=== PATIENT | female | born 1990 | race Caucasian/White ===

== ENCOUNTER 2017-08-12 22:41 | Inpatient (IN) | payer BC ==
[2017-08-13] MEDS ORDERED: Promethazine 25 MG/ML SDV IM ONE (01:20)
[2017-08-13] MEDS ORDERED: Butorphanol 1 MG/ML SDV IM ONE (01:20)
[2017-08-13] MEDS ORDERED: Water For Irrigation,Sterile 1,000 ML Container IRR PRN (03:34)
[2017-08-13] MEDS ORDERED: Sodium Chloride 0.9% 2.5 ML Syringe FLUSH PRN (03:34)
[2017-08-13] MEDS ORDERED: Misoprostol 200 MCG Tab PO PRN (03:34)
[2017-08-13] MEDS ORDERED: Butorphanol 1 MG/ML SDV IVPUSH PRN (03:34)
[2017-08-13] MEDS ORDERED: Lidocaine 1% 50 ML MDV INJECT PRN (03:34)
[2017-08-13] MEDS ORDERED: Carboprost Tromethamine 250 MCG/1 ML Amp IM PRN (03:34)
[2017-08-13] MEDS ORDERED: Methylergonovine 0.2 MG/1 ML Amp IM PRN (03:34)
[2017-08-13] MEDS ORDERED: Sodium Chloride 0.9% 10 ML Syringe FLUSH PRN (03:34)
[2017-08-13] MEDS ORDERED: Nalbuphine 10 MG/1 ML Vial IVPUSH PRN (03:34)
[2017-08-13] MEDS ORDERED: Oxytocin/0.9 % Sodium Chloride 30 UNIT/500 ML BAG IV SCH ×2 (03:45→07:26)
[2017-08-13] MEDS: Lactated Ringers 1,000 ML IV SCH ×3 (04:22→09:52)
[2017-08-13] MEDS ORDERED: fentaNYL 100 MCG/2 ML SDV ONE ×2 (04:37→13:22)
[2017-08-13] MEDS ORDERED: Ropivacaine 0.2% 2 MG/ML 20 ML SDV ONE (04:38)
[2017-08-13] MEDS ORDERED: Ropivacaine HCl/PF 100 ML ONE ×2 (04:39→13:22)
--- NOTE | 2017-08-13 05:19 | PCM.PREANE ---
Preanesthetic Assessment - Anesthesia/Transfusion/Family Hx Family History of Anesthesia Reaction: No - Review of Systems General: No Symptoms Pulmonary: No Symptoms Cardiovascular: No Symptoms Gastrointestinal: No Symptoms Neurological: No Symptoms Other: Reports: None - Physical Assessment Height: 1.78 m Weight: 99.79 kg ASA Class: 2 Mental Status: Alert & Oriented x3 Airway Class: Mallampati = 2 ROM/Head Extension: Full - Allergies Allergies/Adverse Reactions: Allergies Allergy/AdvReac Type Severity Reaction Status Date / Time Penicillins Allergy Rash Verified 08/12/17 00:53 - Acknowledgements Anesthesia Type Planned: Epidural Pt an Appropriate Candidate for the Planned Anesthesia: Yes Alternatives and Risks of Anesthesia Discussed w Pt/Guardian: Yes Pt/Guardian Understands and Agrees with Anesthesia Plan: Yes PreAnesthesia Questionnaire Hematologic History: Reports: Other (See Below) (Denies any personal or family hx of bleeding or clotting problems) - Past Surgical History Musculoskeletal Surgical History: Reports: Other (See Below) (2014-Left ACL repair) - HOME MEDS Home Medications: Home Meds Vit W-Ca,Fe,FA(<1 mg) [ Vitamins] 1 tab PO DAILY 08/12/17 [ History] valACYclovir HCl [Valtrex] 1 tab PO DAILY 08/12/17 [History] - CURRENT (IN HOUSE) MEDS Current Meds: Current Medications Butorphanol Tartrate (Stadol) 1 mg IVPUSH ASDIRECTED PRN PRN Reason: Pain Carboprost Tromethamine (Hemabate Ds) 250 mcg IM ASDIRECTED PRN PRN Reason: Post Hemorrhage Lactated Ringer's (Ringers, Lactated) 1,000 mls @ 150 mls/hr IV ASDIRECTED [facility] Last Admin: 08/13/17 04:51 Dose: 999 mls/hr Oxytocin/Sodium Chloride (Oxytocin 30 Unit/500 Ml-Ns) 30 unit in 500 mls @ 999 mls/hr IV ASDIRECTED [facility] Lidocaine HCl (Xylocaine 1%) 50 ml INJECT .ONCE PRN PRN Reason: Laceration repair Methylergonovine Maleate (Methergine) 0.2 mg IM ASDIRECTED PRN PRN Reason: Post Hemorrhage Misoprostol (Cytotec) 200 mcg PO .ONCE PRN PRN Reason: Post Hemorrhage Nalbuphine HCl (Nubain) 10 mg IVPUSH ASDIRECTED PRN PRN Reason: Pain (severe 7-10) Sodium Chloride (Saline Flush) 10 ml FLUSH ASDIRECTED PRN PRN Reason: Keep Vein Open Sodium Chloride (Saline Flush) 2.5 ml FLUSH ASDIRECTED PRN PRN Reason: Keep Vein Open Sterile Water (Sterile Water For Irrigation) 1,000 ml IRR ASDIRECTED PRN PRN Reason: delivery Discontinued Medications Butorphanol Tartrate (Stadol) 1 mg IM ONETIME ONE Stop: 08/13/17 01:21 Last Admin: 08/13/17 01:36 Dose: 1 mg Fentanyl (Sublimaze) Confirm Administered Dose 300 mcg .ROUTE .STK-MED ONE Stop: 08/13/17 04:38 Ropivacaine (Naropin 0.2%) Confirm Administered Dose 100 mls @ as directed .ROUTE .STK-MED ONE Stop: 08/13/17 04:40 Promethazine HCl (Phenergan) 12.5 mg IM ONETIME ONE Stop: 08/13/17 01:21 Last Admin: 08/13/17 01:37 Dose: 12.5 mg Ropivacaine (Naropin 0.2%) Confirm Administered Dose 20 ml .ROUTE .STK-MED ONE Stop: 08/13/17 04:39
--- NOTE | 2017-08-13 14:55 | PCM.SN ---
- Free Text/Narrative Note: Called for refill of epidural infusion. 100 ml 0.2% ropivacaine with 200 mcg fentanyl added (2mcg/ml) replaced and infusion continued at prior settings. Pt reports good pain control with epidural. VSS, AIDENR wnl.
[2017-08-13] MEDS ORDERED: Ibuprofen 800 MG Tab ONE (18:38)
[2017-08-13] MEDS ORDERED: Witch Hazel Medicated Pads 40/Jar TOP ONE (18:38)
[2017-08-13] MEDS ORDERED: Benzocaine/Menthol 20%-0.5% Spray 78 GM Cannister ONE (18:38)
[2017-08-13] MEDS ORDERED: Bisacodyl 10 MG Supp RECTAL PRN (19:03)
[2017-08-13] MEDS ORDERED: Docusate Sodium 100 MG Cap PO PRN (19:03)
[2017-08-13] MEDS ORDERED: Benzocaine/Menthol 20%-0.5% Spray 78 GM Cannister TOP PRN (19:03)
[2017-08-13] MEDS ORDERED: Ibuprofen 400 MG Tab PO PRN (19:03)
[2017-08-13] MEDS ORDERED: Witch Hazel Medicated Pads 40/Jar TOP PRN (19:03)
[2017-08-13] MEDS ORDERED: oxyCODONE 5 MG Tab PO PRN (19:03)
[2017-08-13] MEDS ORDERED: Acetaminophen 500 MG Tab PO PRN ×2 (19:03)
[2017-08-13] MEDS ORDERED: Lanolin 100% Cream 7 GM Tube TOP PRN (19:03)
--- NOTE | 2017-08-13 22:12 | PCM.DEL ---
L & D Note - General Info Date of Service: 08/13/17 Mother's Due Date: 08/15/17 - Delivery Note Labor: Spontaneous, Augmented by Oxytocin Delivery Outcome: Livebirth Infant Delivery Method: Spontaneous Vaginal Delivery-Single Presentation: Right Occiput Anterior (KEN) Nuchal Cord: None Anesthesia Type: Epidural Anesthetic: Lidocaine (Xylocaine) 0.5% Plain Local Anesthetic Volume: 5cc Amniotic Fluid Description: Meconium Stained Episiotomy Type: None Laceration: 2nd Degree, Other (Patient with bilateral sulci tear ) Suture type: Other (caprosyn ) Suture size: 2-0 Placenta: Intact Cord: 3 Vessels Estimated Blood Loss: 450 Resuscitation Needed: No Score 1 min: 8 Score 5 min: 8 Delivery Comments (Free Text/Narrative):: Live male delivered @ 336pm, 9/9 Wt; 3990 , bilateral 2nd degree sulci tear repaired in 2 layers - Patient Data Vitals - Most Recent: Last Vital Signs Temp 36.8 C 08/13/17 20:00 Pulse 99 08/13/17 20:00 Resp 16 08/13/17 20:00 BP 103/59 L 08/13/17 20:00 Pulse Ox 95 08/13/17 20:00 Weight - Most Recent: 99.79 kg Med Orders - Current: Current Medications Acetaminophen (Tylenol Extra Strength) 500 mg PO Q4H PRN PRN Reason: Pain Acetaminophen (Tylenol Extra Strength) 1,000 mg PO Q4H PRN PRN Reason: Pain Benzocaine/Menthol (Dermoplast Pain Relief 20%-0.5% [place]) 78 gm TOP ASDIRECTED PRN PRN Reason: Perineal Comfort Measure Bisacodyl (Dulcolax) 10 mg RECTAL .ONCE PRN PRN Reason: Constipation Butorphanol Tartrate (Stadol) 1 mg IVPUSH ASDIRECTED PRN PRN Reason: Pain Carboprost Tromethamine (Hemabate Ds) 250 mcg IM ASDIRECTED PRN PRN Reason: Post Hemorrhage Docusate Sodium (Colace) 100 mg PO BID PRN PRN Reason: Constipation Emollient Ointment (Lansinoh Hpa) 0 gm TOP ASDIRECTED PRN PRN Reason: Sore Nipples Lactated Ringer's (Ringers, Lactated) 1,000 mls @ 150 mls/hr IV ASDIRECTED [facility] Last Admin: 08/13/17 09:52 Dose: 150 mls/hr Oxytocin/Sodium Chloride (Oxytocin 30 Unit/500 Ml-Ns) 30 unit in 500 mls @ 999 mls/hr IV ASDIRECTED [facility] Last Admin: 08/13/17 15:38 Dose: 500 mls/hr Oxytocin/Sodium Chloride (Oxytocin 30 Unit/500 Ml-Ns) 30 unit in 500 mls @ 2 mls/hr IV TITRATE JASME[facility]; 2 MUNITS/MIN PRN Reason: Protocol Last Infusion: 08/13/17 15:24 Dose: 2 munits/min, 2 mls/hr Ibuprofen (Motrin) 400 mg PO Q4H PRN PRN Reason: Pain Ibuprofen (Motrin) 800 mg PO Q6H PRN PRN Reason: Pain Lidocaine HCl (Xylocaine 1%) 50 ml INJECT .ONCE PRN PRN Reason: Laceration repair Methylergonovine Maleate (Methergine) 0.2 mg IM ASDIRECTED PRN PRN Reason: Post Hemorrhage Misoprostol (Cytotec) 200 mcg PO .ONCE PRN PRN Reason: Post Hemorrhage Nalbuphine HCl (Nubain) 10 mg IVPUSH ASDIRECTED PRN PRN Reason: Pain (severe 7-10) Oxycodone HCl (Oxycodone) 5 mg PO Q2H PRN PRN Reason: Pain Sodium Chloride (Saline Flush) 10 ml FLUSH ASDIRECTED PRN PRN Reason: Keep Vein Open Sodium Chloride (Saline Flush) 2.5 ml FLUSH ASDIRECTED PRN PRN Reason: Keep Vein Open Sterile Water (Sterile Water For Irrigation) 1,000 ml IRR ASDIRECTED PRN PRN Reason: delivery Last Admin: 08/13/17 15:36 Dose: 1,000 ml Witch Kiera (Tucks) 1 pad TOP ASDIRECTED PRN PRN Reason: comfort care Discontinued Medications Benzocaine/Menthol (Dermoplast Pain Relief 20%-0.5% [place]) Confirm Administered Dose 78 gm .ROUTE .STK-MED ONE Stop: 08/13/17 18:39 Butorphanol Tartrate (Stadol) 1 mg IM ONETIME ONE Stop: 08/13/17 01:21 Last Admin: 08/13/17 01:36 Dose: 1 mg Fentanyl (Sublimaze) Confirm Administered Dose 300 mcg .ROUTE .STK-MED ONE Stop: 08/13/17 04:38 Fentanyl (Sublimaze) Confirm Administered Dose 200 mcg .ROUTE .STK-MED ONE Stop: 08/13/17 13:23 Ropivacaine (Naropin 0.2%) Confirm Administered Dose 100 mls @ as directed .ROUTE .STK-MED ONE Stop: 08/13/17 04:40 Ropivacaine (Naropin 0.2%) Confirm Administered Dose 100 mls @ as directed .ROUTE .STK-MED ONE Stop: 08/13/17 13:23 Ibuprofen (Motrin) Confirm Administered Dose 800 mg .ROUTE .STK-MED ONE Stop: 08/13/17 18:39 Promethazine HCl (Phenergan) 12.5 mg IM ONETIME ONE Stop: 08/13/17 01:21 Last Admin: 08/13/17 01:37 Dose: 12.5 mg Ropivacaine (Naropin 0.2%) Confirm Administered Dose 20 ml .ROUTE .STK-MED ONE Stop: 08/13/17 04:39 uJlio Qureshi (Tucks) Confirm Administered Dose 1 pad TOP .STK-MED ONE Stop: 08/13/17 18:39 - Problem List & Annotations (1) Normal vaginal delivery SNOMED Code(s): 02469602 Code(s): O80 - ENCOUNTER FOR FULL-TERM UNCOMPLICATED DELIVERY Status: Acute Priority: Medium Current Visit: Yes Onset Date: 08/13/17 - Problem List Review Problem List Initiated/Reviewed/Updated: Yes - My Orders Last 24 Hours: My Active Orders 08/13/17 15:36 Patient Status [ADT] Routine 08/13/17 19:03 Vital Signs [RC] PER UNIT ROUTINE Acetaminophen [Tylenol Extra Strength] 1,000 mg PO Q4H PRN Acetaminophen [Tylenol Extra Strength] 500 mg PO Q4H PRN Benzocaine/Menthol [Dermoplast Pain Relief 20%-0.5% [place]] 78 gm TOP ASDIRECTED PRN Bisacodyl [Dulcolax] 10 mg RECTAL .ONCE PRN Docusate Sodium [Colace] 100 mg PO BID PRN Ibuprofen [Motrin] 400 mg PO Q4H PRN Ibuprofen [Motrin] 800 mg PO Q6H PRN Lanolin [Lansinoh HPA] See Dose Instructions TOP ASDIRECTED PRN [place] Kiera [Tucks] 1 pad TOP ASDIRECTED PRN oxyCODONE 5 mg PO Q2H PRN Assess Lochia [WOMSER] Per Unit Routine Assess Uterine Involution [WOMSER] Per Unit Routine Peripheral IV Discontinue [OM.PC] Routine 08/14/17 05:11 HEMOGLOBIN/HEMATOCRIT,HH [HEME] Timed - Assessment Assessment:: s/p , uncomplicated - Plan Plan:: Pain control Regular diet Sitz bath
[2017-08-14] MEDS: Ibuprofen 800 MG Tab PO PRN ×2 (09:53→15:24)
[2017-08-14 10:29] VITALS: BP 120/71
--- NOTE | 2017-08-14 10:29 | PCM.PNPP ---
- General Info Date of Service: 08/14/17 Admission Dx/Problem (Free Text): 26 yo P1 s/p , PPD 1 Subjective Update: Patient seen at bedside , denies any complains , ambulating voiding , tolerating regular diet , has good pain control. Want to go home today. . Minimal vaginal bleeding Functional Status: Reports: Pain Controlled, Tolerating Diet, Ambulating, Urinating - Review of Systems General: Reports: No Symptoms HEENT: Reports: No Symptoms Pulmonary: Reports: No Symptoms Cardiovascular: Reports: No Symptoms Gastrointestinal: Reports: No Symptoms Genitourinary: Reports: No Symptoms Musculoskeletal: Reports: No Symptoms Skin: Reports: No Symptoms Neurological: Reports: No Symptoms Psychiatric: Reports: No Symptoms - General Info Date of Service: 08/14/17 - Patient Data Vital Signs - Most Recent: Last Vital Signs Temp 36.2 C 08/14/17 03:54 Pulse 85 08/14/17 03:54 Resp 14 08/14/17 03:54 BP 114/68 08/14/17 03:54 Pulse Ox 96 08/14/17 03:54 Weight - Most Recent: 99.79 kg Lab Results - Last 24 Hours: Laboratory Results - last 24 hr 08/14/17 Range/Units 05:07 Hgb 10.2 L (12.0-16.0) g/dL Hct 28.9 L (36.0-46.0) % Med Orders - Current: Current Medications Acetaminophen (Tylenol Extra Strength) 500 mg PO Q4H PRN PRN Reason: Pain Acetaminophen (Tylenol Extra Strength) 1,000 mg PO Q4H PRN PRN Reason: Pain Last Admin: 08/13/17 22:58 Dose: 1,000 mg Benzocaine/Menthol (Dermoplast Pain Relief 20%-0.5% [place]) 78 gm TOP ASDIRECTED PRN PRN Reason: Perineal Comfort Measure Bisacodyl (Dulcolax) 10 mg RECTAL .ONCE PRN PRN Reason: Constipation Butorphanol Tartrate (Stadol) 1 mg IVPUSH ASDIRECTED PRN PRN Reason: Pain Carboprost Tromethamine (Hemabate Ds) 250 mcg IM ASDIRECTED PRN PRN Reason: Post Hemorrhage Docusate Sodium (Colace) 100 mg PO BID PRN PRN Reason: Constipation Last Admin: 08/14/17 09:53 Dose: 100 mg Emollient Ointment (Lansinoh Hpa) 0 gm TOP ASDIRECTED PRN PRN Reason: Sore Nipples Lactated Ringer's (Ringers, Lactated) 1,000 mls @ 150 mls/hr IV ASDIRECTED [facility] Last Admin: 08/13/17 09:52 Dose: 150 mls/hr Oxytocin/Sodium Chloride (Oxytocin 30 Unit/500 Ml-Ns) 30 unit in 500 mls @ 999 mls/hr IV ASDIRECTED [facility] Last Admin: 08/13/17 15:38 Dose: 500 mls/hr Oxytocin/Sodium Chloride (Oxytocin 30 Unit/500 Ml-Ns) 30 unit in 500 mls @ 2 mls/hr IV TITRATE [facility]; 2 MUNITS/MIN PRN Reason: Protocol Last Infusion: 08/13/17 15:24 Dose: 2 munits/min, 2 mls/hr Ibuprofen (Motrin) 400 mg PO Q4H PRN PRN Reason: Pain Last Admin: 08/14/17 03:28 Dose: 400 mg Ibuprofen (Motrin) 800 mg PO Q6H PRN PRN Reason: Pain Last Admin: 08/14/17 09:53 Dose: 800 mg Lidocaine HCl (Xylocaine 1%) 50 ml INJECT .ONCE PRN PRN Reason: Laceration repair Methylergonovine Maleate (Methergine) 0.2 mg IM ASDIRECTED PRN PRN Reason: Post Hemorrhage Misoprostol (Cytotec) 200 mcg PO .ONCE PRN PRN Reason: Post Hemorrhage Nalbuphine HCl (Nubain) 10 mg IVPUSH ASDIRECTED PRN PRN Reason: Pain (severe 7-10) Oxycodone HCl (Oxycodone) 5 mg PO Q2H PRN PRN Reason: Pain Last Admin: 08/14/17 03:29 Dose: 5 mg Sodium Chloride (Saline Flush) 10 ml FLUSH ASDIRECTED PRN PRN Reason: Keep Vein Open Sodium Chloride (Saline Flush) 2.5 ml FLUSH ASDIRECTED PRN PRN Reason: Keep Vein Open Sterile Water (Sterile Water For Irrigation) 1,000 ml IRR ASDIRECTED PRN PRN Reason: delivery Last Admin: 08/13/17 15:36 Dose: 1,000 ml Witch Kiera (Tucks) 1 pad TOP ASDIRECTED PRN PRN Reason: comfort care Discontinued Medications Benzocaine/Menthol (Dermoplast Pain Relief 20%-0.5% [place]) Confirm Administered Dose 78 gm .ROUTE .STK-MED ONE Stop: 08/13/17 18:39 Butorphanol Tartrate (Stadol) 1 mg IM ONETIME ONE Stop: 08/13/17 01:21 Last Admin: 08/13/17 01:36 Dose: 1 mg Fentanyl (Sublimaze) Confirm Administered Dose 300 mcg .ROUTE .STK-MED ONE Stop: 08/13/17 04:38 Fentanyl (Sublimaze) Confirm Administered Dose 200 mcg .ROUTE .STK-MED ONE Stop: 08/13/17 13:23 Ropivacaine (Naropin 0.2%) Confirm Administered Dose 100 mls @ as directed .ROUTE .STK-MED ONE Stop: 08/13/17 04:40 Ropivacaine (Naropin 0.2%) Confirm Administered Dose 100 mls @ as directed .ROUTE .STK-MED ONE Stop: 08/13/17 13:23 Ibuprofen (Motrin) Confirm Administered Dose 800 mg .ROUTE .STK-MED ONE Stop: 08/13/17 18:39 Promethazine HCl (Phenergan) 12.5 mg IM ONETIME ONE Stop: 08/13/17 01:21 Last Admin: 08/13/17 01:37 Dose: 12.5 mg Ropivacaine (Naropin 0.2%) Confirm Administered Dose 20 ml .ROUTE .STK-MED ONE Stop: 08/13/17 04:39 Julio Qureshi (Tucks) Confirm Administered Dose 1 pad TOP .STK-MED ONE Stop: 08/13/17 18:39 - Interaction Disposition, : [place] in Room with Family Feeding: Continues to Breastfeed Support Person: - Recovery Exam Fundal Tone: Firm Fundal Level: At Umbilicus Fundal Placement: Midline Lochia Amount: Scant Lochia Color: Rubra/Red Perineum Description: Other (see below) Other Perinuem Description: with 2 degree laceration and jenny. sulci tear Episiotomy/Laceration: Approximated Bladder Status: Voiding Urinary Elimination: Voided - Exam General: Alert, Oriented Lungs: Clear to Auscultation Cardiovascular: Regular Rate, Regular Rhythm GI/Abdominal Exam: Normal Bowel Sounds Extremities: Normal Inspection Skin: Warm Wound/Incisions: Healing Well - Problem List & Annotations (1) Normal vaginal delivery SNOMED Code(s): 41841199 Code(s): O80 - ENCOUNTER FOR FULL-TERM UNCOMPLICATED DELIVERY Status: Acute Priority: Medium Current Visit: Yes Onset Date: 08/13/17 - Problem List Review Problem List Initiated/Reviewed/Updated: Yes - My Orders Last 24 Hours: My Active Orders 08/13/17 15:36 Patient Status [ADT] Routine 08/13/17 19:03 Vital Signs [RC] PER UNIT ROUTINE Acetaminophen [Tylenol Extra Strength] 1,000 mg PO Q4H PRN Acetaminophen [Tylenol Extra Strength] 500 mg PO Q4H PRN Benzocaine/Menthol [Dermoplast Pain Relief 20%-0.5% [place]] 78 gm TOP ASDIRECTED PRN Bisacodyl [Dulcolax] 10 mg RECTAL .ONCE PRN Docusate Sodium [Colace] 100 mg PO BID PRN Ibuprofen [Motrin] 400 mg PO Q4H PRN Ibuprofen [Motrin] 800 mg PO Q6H PRN Lanolin [Lansinoh HPA] See Dose Instructions TOP ASDIRECTED PRN Witch Kiera [Tucks] 1 pad TOP ASDIRECTED PRN oxyCODONE 5 mg PO Q2H PRN Assess Lochia [WOMSER] Per Unit Routine Assess Uterine Involution [WOMSER] Per Unit Routine Peripheral IV Discontinue [OM.PC] Routine - Assessment Assessment:: 26 yo P1 s/p , uncomplicated - Plan Plan:: Discharge home today Follow up in 6 weeks
--- NOTE | 2017-08-14 23:12 | PCM48HPAN ---
Post Anesthesia Note - EVALUATION WITHIN 48HRS OF ANESTHETIC Vital Signs in Normal Range: Yes Patient Participated in Evaluation: Yes Respiratory Function Stable: Yes Airway Patent: Yes Cardiovascular Function Stable: Yes Hydration Status Stable: Yes Pain Control Satisfactory: Yes Nausea and Vomiting Control Satisfactory: Yes Mental Status Recovered: Yes
--- NOTE | 2017-08-15 23:02 | OR ---
SURGEON: TARAN VELEZ DATE OF PROCEDURE: 08/14/2017 PREOPERATIVE DIAGNOSIS: A 26-year-old, G1, P0, at 39 weeks 5 days, admitted in early labor. POSTOPERATIVE DIAGNOSIS: Delivered via spontaneous vaginal delivery. ESTIMATED BLOOD LOSS: 400. COMPLICATIONS: None. FINDINGS: A live male delivered. score was 8 and 9. weight was 3990g Cord was inspected and had 3-vessel cord. A bilateral second degree sulcal laceration, which was repaired. INDICATIONS: This was a patient who was admitted at 39 weeks and 5 days, who came in with contraction and eventually SROM'ed. She was given Pitocin for augmentation of labor. Vaginal exam changed from 4-5, 90, -1 at 5:00 a.m. to 6, 90, -1 at 8:45 a.m., 7, 80, -1 at 10:00 a.m., 8, 100, -2 at 12:15 p.m., and at about 3 p.m., the patient was noted to be fully dilated. The patient was then encouraged push and the patient then pushed. NARRATIVE: Infant head was delivered with the maternal pushing effort. The head was delivered in right OA position, and after that, subsequently the shoulders were delivered with upward and downward traction. The posterior shoulder was then delivered fully by the body. The cord was clamped and cut and the infant was handed over to the mother and she was cleaned on the mother. The placenta was then delivered by controlled cord traction. Cord blood gases were obtained. The perineum was then inspected and found to have bilateral second degree lacerations in the sulcus, which was then repaired with 2.0 Caprosyn. The score was 8 and 9. The blood loss was 450ml. Placenta was intact with 3-vessel cord noted. After the delivery of the and placenta, and repair of the laceration, the perineum was inspected and found be hemostatic. All instrument and pad counts were correct x2. The infant and mother were responding well. Dr. Isabella Dewey was present for the entire procedure. RIZWAN ZUNIGA /[id number] SUZIE
== END 2017-08-14 18:05 | disposition home or self-care (01) | DRG 560 ==
LOC: MW.OBCHECK 22:41 → MW.OB 22:45 → MW.OBCHECK 08-13 03:35 → MW.OB 08-13 03:35 → OBSVTOIN 08-13 15:36 → MW.OB 08-13 23:53
PROVIDERS: ADMIT Obstetrics & Gynecology; ATTEND Obstetrics & Gynecology
PROC: 10E0XZZ Delivery of Products of Conception, External Approach (ICD-10-PCS; principal; 2017-08-13)
PROC: 0KQM0ZZ Repair Perineum Muscle, Open Approach (ICD-10-PCS; 2017-08-13)
DX: O70.1 Second degree perineal laceration during delivery (principal); Z3A.39 39 weeks gestation of pregnancy; Z37.0 Single live birth
CPT/HCPCS: 01967; 36415; 59025; 59409; 85014; 85018; 88305; A9270-GY; J0595; J2550; J2590; J2795; J3010; J7120

== ENCOUNTER 2019-01-30 03:19 | Inpatient (IN) | payer BC ==
[2019-01-30] MEDS ORDERED: Butorphanol 1 MG/ML SDV IM ONE (05:07)
[2019-01-30] MEDS ORDERED: Butorphanol 1 MG/ML SDV ONE (05:12)
[2019-01-30] MEDS ORDERED: Nalbuphine 10 MG/1 ML Vial IVPUSH PRN (06:44)
[2019-01-30] MEDS ORDERED: Misoprostol 200 MCG Tab PO PRN (06:44)
[2019-01-30] MEDS ORDERED: Lidocaine 1% 50 ML MDV INJECT PRN (06:44)
[2019-01-30] MEDS ORDERED: Butorphanol 1 MG/ML SDV IVPUSH PRN (06:44)
[2019-01-30] MEDS ORDERED: Water For Irrigation,Sterile 1,000 ML Container IRR PRN (06:44)
[2019-01-30] MEDS ORDERED: Carboprost Tromethamine 250 MCG/1 ML Amp IM PRN (06:44)
[2019-01-30] MEDS ORDERED: Tranexamic Acid 1,000 MG in Sodium Chloride 0.9% 100 ML IV PRN (06:44)
[2019-01-30] MEDS ORDERED: Sodium Chloride 0.9% 10 ML Syringe FLUSH PRN ×2 (06:44→11:33)
[2019-01-30] MEDS ORDERED: Methylergonovine 0.2 MG/1 ML Amp IM PRN (06:44)
[2019-01-30] MEDS ORDERED: Sodium Chloride 0.9% 10 ML SDV IV PRN ×2 (06:44→11:33)
[2019-01-30] MEDS ORDERED: Oxytocin/0.9 % Sodium Chloride 30 UNIT/500 ML BAG IV SCH (06:45)
[2019-01-30] MEDS: Lactated Ringers 1,000 ML IV SCH ×2 (07:00→08:07)
[2019-01-30] MEDS ORDERED: fentaNYL 100 MCG/2 ML SDV ONE (07:37)
[2019-01-30] MEDS ORDERED: Bupivacaine 0.25% 10 ML SDV ONE ×2 (07:38→12:19)
[2019-01-30] MEDS ORDERED: Lidocaine HCl/EPINEPHrine 5 ML IJ ONE (07:38)
--- NOTE | 2019-01-30 08:14 | PCM.PREANE ---
Preanesthetic Assessment - Anesthesia/Transfusion/Family Hx Anesthesia History: No Prior Anesthesia Transfusion History: No Prior Transfusion(s) - Review of Systems General: No Symptoms Pulmonary: No Symptoms Cardiovascular: No Symptoms Gastrointestinal: No Symptoms Neurological: No Symptoms Other: Reports: None - Physical Assessment Pulse: 80 O2 Sat by Pulse Oximetry: 98 Respiratory Rate: 18 Blood Pressure: 123/78 Height: 1.78 m Weight: 98.883 kg ASA Class: 2E Mental Status: Alert & Oriented x3 Dentition: Reports: Normal Dentition Lungs: Clear to Auscultation, Normal Respiratory Effort Cardiovascular: Regular Rate, Regular Rhythm - Lab Values: Laboratory Last Values WBC 16.63 K/uL (4.0-11.0) H 01/30/19 06:58 RBC 3.67 M/uL (4.30-5.90) L 01/30/19 06:58 Hgb 12.1 g/dL (12.0-16.0) 01/30/19 06:58 Hct 34.1 % (36.0-46.0) L 01/30/19 06:58 MCV 92.9 fL (80.0-98.0) 01/30/19 06:58 MCH 33.0 pg (27.0-32.0) H 01/30/19 06:58 MCHC 35.5 g/dL (31.0-37.0) 01/30/19 06:58 RDW Std Deviation 44.3 fl (28.0-62.0) 01/30/19 06:58 RDW Coeff of Pepito 13 % (11.0-15.0) 01/30/19 06:58 Plt Count 193 K/uL (150-400) 01/30/19 06:58 MPV 9.10 fL (7.40-12.00) 01/30/19 06:58 Nucleated RBC % 0.0 /100WBC 01/30/19 06:58 Nucleated RBCs # 0 K/uL 01/30/19 06:58 Blood Type B POSITIVE 01/30/19 06:58 Antibody Screen NEGATIVE 01/30/19 06:58 - Allergies Allergies/Adverse Reactions: Allergies Allergy/AdvReac Type Severity Reaction Status Date / Time Penicillins Allergy Rash Verified 08/12/17 00:53 - Acknowledgements Anesthesia Type Planned: Epidural Pt an Appropriate Candidate for the Planned Anesthesia: Yes Alternatives and Risks of Anesthesia Discussed w Pt/Guardian: Yes Pt/Guardian Understands and Agrees with Anesthesia Plan: Yes PreAnesthesia Questionnaire [employer] History: Reports: , Spontaneous Hematologic History: Reports: Other (See Below) (Denies any personal or family hx of bleeding or clotting problems) - Past Surgical History Musculoskeletal Surgical History: Reports: Other (See Below) (2014-Left ACL repair) - HOME MEDS Home Medications: Home Meds Vit Calc,Iron,Folic [ Vitamins] 1 tab PO DAILY 08/12/17 [ History] valACYclovir HCl [Valtrex] 1 tab PO DAILY 08/12/17 [History] - CURRENT (IN HOUSE) MEDS Current Meds: Current Medications Butorphanol Tartrate (Stadol) 1 mg IVPUSH ASDIRECTED PRN PRN Reason: Pain Carboprost Tromethamine (Hemabate Ds) 250 mcg IM ASDIRECTED PRN PRN Reason: Post Hemorrhage Tranexamic Acid 1,000 mg/ (Sodium Chloride) 110 mls @ 660 mls/hr IV ONETIME PRN PRN Reason: Bleeding Lactated Ringer's (Ringers, Lactated) 1,000 mls @ 150 mls/hr IV ASDIRECTED [facility] Last Admin: 01/30/19 08:07 Dose: 150 mls/hr Oxytocin/Sodium Chloride (Oxytocin 30 Unit/500 Ml-Ns) 30 unit in 500 mls @ 999 mls/hr IV TITRATE JASMEET Vancomycin HCl 1 gm/ Sodium (Chloride) 250 mls @ 166 mls/hr IV Q12H [facility] Last Admin: 01/30/19 08:05 Dose: 166 mls/hr Lidocaine HCl (Xylocaine 1%) 50 ml INJECT ONETIME PRN PRN Reason: Laceration repair Methylergonovine Maleate (Methergine) 0.2 mg IM ASDIRECTED PRN PRN Reason: Post Hemorrhage Misoprostol (Cytotec) 200 mcg PO ONETIME PRN PRN Reason: Post Hemorrhage Nalbuphine HCl (Nubain) 10 mg IVPUSH ASDIRECTED PRN PRN Reason: Pain (severe 7-10) Sodium Chloride (Saline Flush) 10 ml FLUSH ASDIRECTED PRN PRN Reason: Keep Vein Open Sodium Chloride (Normal Saline) 10 ml IV ASDIRECTED PRN PRN Reason: IV Use Sterile Water (Sterile Water For Irrigation) 1,000 ml IRR ASDIRECTED PRN PRN Reason: delivery Discontinued Medications Bupivacaine HCl (Sensorcaine-Mpf 0.25%) Confirm Administered Dose 10 ml .ROUTE .STK-MED ONE Stop: 01/30/19 07:39 Butorphanol Tartrate (Stadol) 1 mg IM ONETIME ONE Stop: 01/30/19 05:08 Last Admin: 01/30/19 05:20 Dose: 1 mg Butorphanol Tartrate (Stadol) Confirm Administered Dose 1 mg .ROUTE .STK-MED ONE Stop: 01/30/19 05:13 Last Admin: 01/30/19 05:25 Dose: Not Given Fentanyl (Sublimaze) Confirm Administered Dose 100 mcg .ROUTE .STK-MED ONE Stop: 01/30/19 07:38 Fentanyl/Bupivacaine HCl (Yiarrgso-Zfajo-Ap 2 Mcg/Ml-0.125%) Confirm Administered Dose 100 mls @ as directed .ROUTE .STK-MED ONE Stop: 01/30/19 07:39 Lidocaine/Epinephrine (Lidocaine 1.5%-Epi 1:200,000) Confirm Administered Dose 5 ml IJ .STK-MED ONE Stop: 01/30/19 07:39
[2019-01-30] MEDS ORDERED: Sodium Chloride 0.9% 2.5 ML Syringe FLUSH PRN (11:33)
[2019-01-30] MEDS ORDERED: Ondansetron 4 MG/2 ML SDV IV PRN (11:33)
[2019-01-30] MEDS ORDERED: Lactated Ringers 1,000 ML IV SCH (11:45)
[2019-01-30] MEDS ORDERED: ceFAZolin 1 GM Vial IM SCH (11:45)
[2019-01-30] MEDS ORDERED: ceFAZolin 1 GM Vial IV SCH (12:23)
--- NOTE | 2019-01-30 13:50 | PCM.DEL ---
<Shira Spears - Last Filed: 01/30/19 13:44> L & D Note - General Info Date of Service: 01/30/19 Mother's Due Date: 02/16/19 - Delivery Note Labor: Spontaneous Delivery Outcome: Livebirth Infant Delivery Method: Spontaneous Vaginal Delivery-Single Presentation: Left Occiput Anterior (HAYLIE) Nuchal Cord: None Prep: Povidone-Iodine (Betadine Anesthesia Type: Epidural Anesthetic: Lidocaine (Xylocaine) 1% Plain Local Anesthetic Volume: Other (16 cc) Amniotic Fluid Description: Clear Episiotomy Type: None Laceration: 2nd Degree Suture type: Vicryl Suture size: 3-0 Placenta: Intact, Spontaneous Cord: 3 Vessels Estimated Blood Loss: 350 Resuscitation Needed: No : Bulb Syringe Score 1 min: 9 Score 5 min: 9 Delivery Comments (Free Text/Narrative):: Shyanne is a who was at 37.4 wga who came to labor and delivery due to spontaneous labor. She was not augmented and had spontaneous rupture of membranes with clear fluid while admitted on the LDR unit. She delivered a liveborn male infant at 13:23 with scores of 9/9. Weight of has not been taken. - General Info Date of Service: 01/30/19 - Patient Data Vitals - Most Recent: Last Vital Signs Temp Pulse 80 01/30/19 08:14 Resp 18 01/30/19 08:14 BP 123/78 01/30/19 08:14 Pulse Ox 98 01/30/19 08:14 Weight - Most Recent: 98.883 kg Lab Results Last 24 Hours: Laboratory Results - last 24 hr 01/30/19 01/30/19 Range/Units 06:58 06:58 WBC 16.63 H (4.0-11.0) K/uL RBC 3.67 L (4.30-5.90) M/uL Hgb 12.1 (12.0-16.0) g/dL Hct 34.1 L (36.0-46.0) % MCV 92.9 (80.0-98.0) fL MCH 33.0 H (27.0-32.0) pg MCHC 35.5 (31.0-37.0) g/dL RDW Std Deviation 44.3 (28.0-62.0) fl RDW Coeff of Pepito 13 (11.0-15.0) % Plt Count 193 (150-400) K/uL MPV 9.10 (7.40-12.00) fL Nucleated RBC % 0.0 /100WBC Nucleated RBCs # 0 K/uL Blood Type B POSITIVE Antibody Screen NEGATIVE Med Orders - Current: Current Medications Butorphanol Tartrate (Stadol) 1 mg IVPUSH ASDIRECTED PRN PRN Reason: Pain Carboprost Tromethamine (Hemabate Ds) 250 mcg IM ASDIRECTED PRN PRN Reason: Post Hemorrhage Tranexamic Acid 1,000 mg/ (Sodium Chloride) 110 mls @ 660 mls/hr IV ONETIME PRN PRN Reason: Bleeding Lactated Ringer's (Ringers, Lactated) 1,000 mls @ 150 mls/hr IV ASDIRECTED [facility] Last Admin: 01/30/19 08:07 Dose: 150 mls/hr Oxytocin/Sodium Chloride (Oxytocin 30 Unit/500 Ml-Ns) 30 unit in 500 mls @ 999 mls/hr IV TITRATE [facility] Lactated Ringer's (Ringers, Lactated) 1,000 mls @ 150 mls/hr IV ASDIRECTED [facility] Last Admin: 01/30/19 11:59 Dose: 150 mls/hr Cefazolin Sodium/Dextrose 1 gm (/ Premix) 50 mls @ 100 mls/hr IV Q8H [facility] Lidocaine HCl (Xylocaine 1%) 50 ml INJECT ONETIME PRN PRN Reason: Laceration repair Methylergonovine Maleate (Methergine) 0.2 mg IM ASDIRECTED PRN PRN Reason: Post Hemorrhage Misoprostol (Cytotec) 200 mcg PO ONETIME PRN PRN Reason: Post Hemorrhage Nalbuphine HCl (Nubain) 10 mg IVPUSH ASDIRECTED PRN PRN Reason: Pain (severe 7-10) Ondansetron HCl (Zofran) 4 mg IV Q4H PRN PRN Reason: Nausea/Vomiting Sodium Chloride (Saline Flush) 10 ml FLUSH ASDIRECTED PRN PRN Reason: Keep Vein Open Sodium Chloride (Normal Saline) 10 ml IV ASDIRECTED PRN PRN Reason: IV Use Sodium Chloride (Saline Flush) 10 ml FLUSH ASDIRECTED PRN PRN Reason: Keep Vein Open Sodium Chloride (Saline Flush) 2.5 ml FLUSH ASDIRECTED PRN PRN Reason: Keep Vein Open Sodium Chloride (Normal Saline) 10 ml IV ASDIRECTED PRN PRN Reason: IV Use Sterile Water (Sterile Water For Irrigation) 1,000 ml IRR ASDIRECTED PRN PRN Reason: delivery Discontinued Medications Bupivacaine HCl (Sensorcaine-Mpf 0.25%) Confirm Administered Dose 10 ml .ROUTE .STK-MED ONE Stop: 01/30/19 07:39 Bupivacaine HCl (Sensorcaine-Mpf 0.25%) Confirm Administered Dose 10 ml .ROUTE .STK-MED ONE Stop: 01/30/19 12:20 Butorphanol Tartrate (Stadol) 1 mg IM ONETIME ONE Stop: 01/30/19 05:08 Last Admin: 01/30/19 05:20 Dose: 1 mg Butorphanol Tartrate (Stadol) Confirm Administered Dose 1 mg .ROUTE .STK-MED ONE Stop: 01/30/19 05:13 Last Admin: 01/30/19 05:25 Dose: Not Given Cefazolin Sodium (Ancef) 1 gm IM Q8H [facility] Cefazolin Sodium (Ancef) 1 gm IV Q8H [facility] Fentanyl (Sublimaze) Confirm Administered Dose 100 mcg .ROUTE .STK-MED ONE Stop: 01/30/19 07:38 Vancomycin HCl 1 gm/ Sodium (Chloride) 250 mls @ 166 mls/hr IV Q12H [facility] Last Admin: 01/30/19 08:05 Dose: 166 mls/hr Fentanyl/Bupivacaine HCl (Rudaxapy-Pdyfj-Eb 2 Mcg/Ml-0.125%) Confirm Administered Dose 100 mls @ as directed .ROUTE .STK-MED ONE Stop: 01/30/19 07:39 Cefazolin Sodium/Dextrose (Ancef) Confirm Administered Dose 50 mls @ as directed .ROUTE .STK-MED ONE Stop: 01/30/19 11:52 Last Admin: 01/30/19 11:58 Dose: 100 mls/hr Fentanyl/Bupivacaine HCl (Ryxyzmvf-Fcsyb-Rh 2 Mcg/Ml-0.125%) Confirm Administered Dose 100 mls @ as directed .ROUTE .STK-MED ONE Stop: 01/30/19 12:33 Lidocaine/Epinephrine (Lidocaine 1.5%-Epi 1:200,000) Confirm Administered Dose 5 ml IJ .STK-MED ONE Stop: 01/30/19 07:39 - Problem List & Annotations (1) Normal vaginal delivery SNOMED Code(s): 27423527 Code(s): O80 - ENCOUNTER FOR FULL-TERM UNCOMPLICATED DELIVERY Status: Acute Priority: Medium Current Visit: Yes Onset Date: 08/13/17 - Problem List Review Problem List Initiated/Reviewed/Updated: Yes - Assessment Assessment:: Shyanne is a 28 year old who delivered a liveborn male infant at 13:23. Baby and mother were both stable and in good condition. <Shira Yoon - Last Filed: 01/30/19 13:59> - Patient Data Vitals - Most Recent: Last Vital Signs Temp Pulse 80 01/30/19 08:14 Resp 18 01/30/19 08:14 BP 123/78 01/30/19 08:14 Pulse Ox 98 01/30/19 08:14 Lab Results Last 24 Hours: Laboratory Results - last 24 hr 01/30/19 01/30/19 Range/Units 06:58 06:58 WBC 16.63 H (4.0-11.0) K/uL RBC 3.67 L (4.30-5.90) M/uL Hgb 12.1 (12.0-16.0) g/dL Hct 34.1 L (36.0-46.0) % MCV 92.9 (80.0-98.0) fL MCH 33.0 H (27.0-32.0) pg MCHC 35.5 (31.0-37.0) g/dL RDW Std Deviation 44.3 (28.0-62.0) fl RDW Coeff of Pepito 13 (11.0-15.0) % Plt Count 193 (150-400) K/uL MPV 9.10 (7.40-12.00) fL Nucleated RBC % 0.0 /100WBC Nucleated RBCs # 0 K/uL Blood Type B POSITIVE Antibody Screen NEGATIVE Med Orders - Current: Current Medications Acetaminophen (Tylenol Extra Strength) 500 mg PO Q4H PRN PRN Reason: Pain Acetaminophen (Tylenol Extra Strength) 1,000 mg PO Q4H PRN PRN Reason: Pain Al Hydroxide/Mg Hydroxide (Mag-Al Plus) 30 ml PO Q8H PRN PRN Reason: Heartburn Benzocaine/Menthol (Dermoplast Pain Relief 20%-0.5% [place]) 78 gm TOP ASDIRECTED PRN PRN Reason: Perineal Comfort Measure Bisacodyl (Dulcolax) 10 mg RECTAL ONETIME PRN PRN Reason: Constipation Carboprost Tromethamine (Hemabate Ds) 250 mcg IM ASDIRECTED PRN PRN Reason: Post Hemorrhage Docusate Sodium (Colace) 100 mg PO BID PRN PRN Reason: Constipation Emollient Ointment (Lansinoh Hpa) 0 gm TOP ASDIRECTED PRN PRN Reason: Sore Nipples Tranexamic Acid 1,000 mg/ (Sodium Chloride) 110 mls @ 660 mls/hr IV ONETIME PRN PRN Reason: Bleeding Lactated Ringer's (Ringers, Lactated) 1,000 mls @ 150 mls/hr IV ASDIRECTED [facility] Last Admin: 01/30/19 08:07 Dose: 150 mls/hr Oxytocin/Sodium Chloride (Oxytocin 30 Unit/500 Ml-Ns) 30 unit in 500 mls @ 999 mls/hr IV TITRATE [facility] Lactated Ringer's (Ringers, Lactated) 1,000 mls @ 150 mls/hr IV ASDIRECTED [facility] Last Admin: 01/30/19 11:59 Dose: 150 mls/hr Cefazolin Sodium/Dextrose 1 gm (/ Premix) 50 mls @ 100 mls/hr IV Q8H [facility] Ibuprofen (Motrin) 400 mg PO Q4H PRN PRN Reason: Pain Ibuprofen (Motrin) 800 mg PO Q6H PRN PRN Reason: Pain Lidocaine HCl (Xylocaine 1%) 50 ml INJECT ONETIME PRN PRN Reason: Laceration repair Methylergonovine Maleate (Methergine) 0.2 mg IM ASDIRECTED PRN PRN Reason: Post Hemorrhage Nalbuphine HCl (Nubain) 10 mg IVPUSH ASDIRECTED PRN PRN Reason: Pain (severe 7-10) Ondansetron HCl (Zofran) 4 mg IV Q4H PRN PRN Reason: Nausea/Vomiting Oxycodone HCl (Oxycodone) 5 mg PO Q2H PRN PRN Reason: Pain Sodium Chloride (Saline Flush) 10 ml FLUSH ASDIRECTED PRN PRN Reason: Keep Vein Open Sodium Chloride (Normal Saline) 10 ml IV ASDIRECTED PRN PRN Reason: IV Use Sodium Chloride (Saline Flush) 10 ml FLUSH ASDIRECTED PRN PRN Reason: Keep Vein Open Sodium Chloride (Saline Flush) 2.5 ml FLUSH ASDIRECTED PRN PRN Reason: Keep Vein Open Sodium Chloride (Normal Saline) 10 ml IV ASDIRECTED PRN PRN Reason: IV Use Sterile Water (Sterile Water For Irrigation) 1,000 ml IRR ASDIRECTED PRN PRN Reason: delivery Julio Qureshi (Tucks) 1 pad TOP ASDIRECTED PRN PRN Reason: comfort care Discontinued Medications Bupivacaine HCl (Sensorcaine-Mpf 0.25%) Confirm Administered Dose 10 ml .ROUTE .STK-MED ONE Stop: 01/30/19 07:39 Bupivacaine HCl (Sensorcaine-Mpf 0.25%) Confirm Administered Dose 10 ml .ROUTE .STK-MED ONE Stop: 01/30/19 12:20 Butorphanol Tartrate (Stadol) 1 mg IM ONETIME ONE Stop: 01/30/19 05:08 Last Admin: 01/30/19 05:20 Dose: 1 mg Butorphanol Tartrate (Stadol) Confirm Administered Dose 1 mg .ROUTE .STK-MED ONE Stop: 01/30/19 05:13 Last Admin: 01/30/19 05:25 Dose: Not Given Butorphanol Tartrate (Stadol) 1 mg IVPUSH ASDIRECTED PRN PRN Reason: Pain Cefazolin Sodium (Ancef) 1 gm IM Q8H [facility] Cefazolin Sodium (Ancef) 1 gm IV Q8H [facility] Fentanyl (Sublimaze) Confirm Administered Dose 100 mcg .ROUTE .STK-MED ONE Stop: 01/30/19 07:38 Vancomycin HCl 1 gm/ Sodium (Chloride) 250 mls @ 166 mls/hr IV Q12H [facility] Last Admin: 01/30/19 08:05 Dose: 166 mls/hr Fentanyl/Bupivacaine HCl (Ptlyyeis-Byydw-Jg 2 Mcg/Ml-0.125%) Confirm Administered Dose 100 mls @ as directed .ROUTE .STK-MED ONE Stop: 01/30/19 07:39 Cefazolin Sodium/Dextrose (Ancef) Confirm Administered Dose 50 mls @ as directed .ROUTE .STK-MED ONE Stop: 01/30/19 11:52 Last Admin: 01/30/19 11:58 Dose: 100 mls/hr Fentanyl/Bupivacaine HCl (Zhormlpj-Vjpvv-Cm 2 Mcg/Ml-0.125%) Confirm Administered Dose 100 mls @ as directed .ROUTE .STK-MED ONE Stop: 01/30/19 12:33 Lidocaine/Epinephrine (Lidocaine 1.5%-Epi 1:200,000) Confirm Administered Dose 5 ml IJ .STK-MED ONE Stop: 01/30/19 07:39 Misoprostol (Cytotec) 200 mcg PO ONETIME PRN PRN Reason: Post Hemorrhage - My Orders Last 24 Hours: My Active Orders 01/30/19 11:33 Ondansetron [Zofran] 4 mg IV Q4H PRN Sodium Chloride 0.9% [Normal Saline] 10 ml IV ASDIRECTED PRN Sodium Chloride 0.9% [Saline Flush] 10 ml FLUSH ASDIRECTED PRN Sodium Chloride 0.9% [Saline Flush] 2.5 ml FLUSH ASDIRECTED PRN 01/30/19 11:34 Notify Provider [RC] PRN Peripheral IV Insertion Adult [OM.PC] Routine 01/30/19 11:45 Lactated Ringers [Ringers, Lactated] 1,000 ml IV ASDIRECTED 01/30/19 13:52 Patient Status [ADT] Routine May Shower [RC] ASDIRECTED Up ad Michaela [RC] ASDIRECTED Vital Signs [RC] PER UNIT ROUTINE Acetaminophen [Tylenol Extra Strength] 1,000 mg PO Q4H PRN Acetaminophen [Tylenol Extra Strength] 500 mg PO Q4H PRN Alum Hydrox/Mag Hydrox/Simeth [Mag-Al Plus] 30 ml PO Q8H PRN Benzocaine/Menthol [Dermoplast Pain Relief 20%-0.5% [place]] 78 gm TOP ASDIRECTED PRN Bisacodyl [Dulcolax] 10 mg RECTAL ONETIME PRN Docusate Sodium [Colace] 100 mg PO BID PRN Ibuprofen [Motrin] 400 mg PO Q4H PRN Ibuprofen [Motrin] 800 mg PO Q6H PRN Lanolin [Lansinoh HPA] See Dose Instructions TOP ASDIRECTED PRN Witch Kiera [Tucks] 1 pad TOP ASDIRECTED PRN oxyCODONE 5 mg PO Q2H PRN Assess Lochia [WOMSER] Per Unit Routine Assess Uterine Involution [WOMSER] Per Unit Routine Ice Therapy [OM.PC] Per Unit Routine Perineal Care [OM.PC] Per Unit Routine Peripheral IV Discontinue [OM.PC] Routine Sitz Bath [OM.PC] Per Unit Routine 01/30/19 13:53 BLOOD GAS ARTERIAL UMBILICAL [BG] Routine BLOOD GAS VENOUS UMBILICAL [BG] Routine 01/30/19 20:00 ceFAZolin [Ancef] 1 gm Premix Bag 1 bag IV Q8H 01/30/19 Lunch Regular Diet [DIET] 01/31/19 05:11 HEMOGLOBIN/HEMATOCRIT,HH [HEME] Timed - Plan Plan:: Dictation [id number]
[2019-01-30] MEDS ORDERED: Ibuprofen 400 MG Tab PO PRN (13:52)
[2019-01-30] MEDS ORDERED: Benzocaine/Menthol 20%-0.5% Spray 78 GM Cannister TOP PRN (13:52)
[2019-01-30] MEDS ORDERED: Lanolin 100% Cream 7 GM Tube TOP PRN (13:52)
[2019-01-30] MEDS ORDERED: Bisacodyl 10 MG Supp RECTAL PRN (13:52)
[2019-01-30] MEDS ORDERED: oxyCODONE 5 MG Tab PO PRN (13:52)
[2019-01-30] MEDS ORDERED: Acetaminophen 500 MG Tab PO PRN ×2 (13:52)
[2019-01-30] MEDS ORDERED: Aluminum Hydroxide/Magnesium Hydroxide/Simethicone Susp 30 ML Cup PO PRN (13:52)
[2019-01-30] MEDS ORDERED: Witch Hazel Medicated Pads 40/Jar TOP PRN (13:52)
[2019-01-30] MEDS: Ibuprofen 800 MG Tab PO PRN ×2 (15:21→21:10)
[2019-01-30] MEDS ORDERED: ceFAZolin 1 GM in Premix Bag 1 BAG IV SCH (20:00)
--- NOTE | 2019-01-30 21:07 | OR ---
SURGEON: Shira Yoon M.D. DATE OF PROCEDURE: PREOPERATIVE DIAGNOSES: 1. Thirty-eight week interim . 2. Active labor. POSTOPERATIVE DIAGNOSIS: 1. Thirty-eight week interim . 2. Active labor. PROCEDURE: Spontaneous vaginal delivery, second-degree midline laceration repair. PRIMARY SURGEON: Shira Yoon M.D. ANESTHESIA: Epidural/local. ESTIMATED BLOOD LOSS: 350 mL. FINDINGS: A viable male, 9 at one minute and 9 at five minutes. Weight pending. Spontaneous delivery, intact placenta, 3-vessel cord. DISPOSITION: Infant in nursery, mom in LDRP in stable condition. DESCRIPTION OF PROCEDURE: Shyanne is a 28-year-old G2, P1, at 38 weeks' gestational age who presents today with regular contractions, that were intensifying in nature and is making cervical change. Therefore, she was admitted, routine labs drawn, IV hydration was initiated. heart tones are category 1. The patient is group B beta strep positive. She initially received vancomycin dosage, but I have clarified with her that she has taken cephalosporins safely in the past. Therefore, we dosed her with Ancef. Shortly thereafter, she was found to be 6 cm, 90% effaced, -2 station, feeling increasing pressure. She had undergone regional anesthesia from epidural. However, this was not working satisfactorily for her. She was still feeling quite a lot of pressure. The patient shortly thereafter had a spontaneous rupture of membranes, clear fluid was noted, and quickly progressed to complete 100% effaced, -3 station, called for delivery. Upon my arrival, the patient was placed in modified dorsal lithotomy position, was prepped and draped in the usual aseptic manner. With pushing efforts, was able to deliver 's head atraumatically, spontaneously, followed by anterior shoulder posterior shoulder, and remainder of the body without difficulty. The 's oropharynx and nares were bulb suctioned. Cord was clamped x2 and cut. Infant was handed off to his mother with attending nursing staff at the side. Cord arterial, cord venous, cord blood sampling obtained. Light pressure was applied while the placenta was delivered spontaneously intact. Vigorous fundal uterine massage was applied while 30 units Pitocin was delivered one 500 mL of IV fluid. Upon inspection of cervix, vaginal sidewall, and perineum, there was found to be a second-degree midline laceration repaired using 3-0 Vicryl in the usual fashion. There was also a left vaginal laceration at approximately 5 o'clock position. This was replicated with [id number] suture. Hemostasis thereafter evident. The patient tolerated the repair well. I did infiltrate the region with approximately 18 mL of 1% lidocaine, which helped with the pain control mentally. The sponge count, instrument count, needle count was correct. The patient remained in LDRP. Uterus remained firm. Hemostasis evident. in nursery. SHARI / EFRAIN /[id number]
[2019-01-30] MEDS: Docusate Sodium 100 MG Cap PO PRN (21:10)
[2019-01-31] MEDS: Ibuprofen 800 MG Tab PO PRN ×3 (05:31→19:49)
--- NOTE | 2019-01-31 07:00 | PCM48HPAN ---
Post Anesthesia Note - EVALUATION WITHIN 48HRS OF ANESTHETIC Vital Signs in Normal Range: Yes Patient Participated in Evaluation: Yes Respiratory Function Stable: Yes Airway Patent: Yes Cardiovascular Function Stable: Yes Hydration Status Stable: Yes Pain Control Satisfactory: Yes Nausea and Vomiting Control Satisfactory: Yes Mental Status Recovered: Yes Pulse Rate: 80 Resp Rate: 16 Blood Pressure: 123/78
--- NOTE | 2019-01-31 07:47 | PCM.PNPP ---
<Shira Spears - Last Filed: 01/31/19 07:41> - General Info Date of Service: 01/31/19 Admission Dx/Problem (Free Text): PP day 1 for Subjective Update: Shyanne states that she is doing well and denies new symptoms. She is ambulating , urinating fine but has not had a bowel movement or passed gas. She denies pain. Functional Status: Reports: Pain Controlled, Tolerating Diet, Ambulating, Urinating - Review of Systems General: Reports: No Symptoms Pulmonary: Reports: No Symptoms Cardiovascular: Reports: No Symptoms Gastrointestinal: Reports: No Symptoms Genitourinary: Reports: No Symptoms Musculoskeletal: Reports: No Symptoms Skin: Reports: No Symptoms Neurological: Reports: No Symptoms Psychiatric: Reports: No Symptoms - General Info Date of Service: 01/31/19 - Patient Data Vital Signs - Most Recent: Last Vital Signs Temp 97.6 F 01/31/19 04:00 Pulse 80 01/31/19 07:00 Resp 16 01/31/19 07:00 BP 123/78 01/31/19 07:00 Pulse Ox 97 01/31/19 04:00 Weight - Most Recent: 98.883 kg Lab Results - Last 24 Hours: Laboratory Results - last 24 hr 01/30/19 01/30/19 01/31/19 Range/Units 06:58 13:23 04:55 Hgb 10.0 L (12.0-16.0) g/dL Hct 28.6 L (36.0-46.0) % Cord ABG pH 7.210 (7.18-7.38) Cord ABG Base Excess -8 (-10--2) Cord VBG pH 7.333 (7.25-7.45) Cord VBG Base Excess -7 (-10--2) Blood Type B POSITIVE Antibody Screen NEGATIVE Med Orders - Current: Current Medications Acetaminophen (Tylenol Extra Strength) 500 mg PO Q4H PRN PRN Reason: Pain Acetaminophen (Tylenol Extra Strength) 1,000 mg PO Q4H PRN PRN Reason: Pain Al Hydroxide/Mg Hydroxide (Mag-Al Plus) 30 ml PO Q8H PRN PRN Reason: Heartburn Benzocaine/Menthol (Dermoplast Pain Relief 20%-0.5% Gipsy) 78 gm TOP ASDIRECTED PRN PRN Reason: Perineal Comfort Measure Last Admin: 01/30/19 15:21 Dose: 1 canister Bisacodyl (Dulcolax) 10 mg RECTAL ONETIME PRN PRN Reason: Constipation Carboprost Tromethamine (Hemabate Ds) 250 mcg IM ASDIRECTED PRN PRN Reason: Post Hemorrhage Docusate Sodium (Colace) 100 mg PO BID PRN PRN Reason: Constipation Last Admin: 01/30/19 21:10 Dose: 100 mg Emollient Ointment (Lansinoh Hpa) 0 gm TOP ASDIRECTED PRN PRN Reason: Sore Nipples Tranexamic Acid 1,000 mg/ (Sodium Chloride) 110 mls @ 660 mls/hr IV ONETIME PRN PRN Reason: Bleeding Lactated Ringer's (Ringers, Lactated) 1,000 mls @ 150 mls/hr IV ASDIRECTED [facility] Last Admin: 01/30/19 08:07 Dose: 150 mls/hr Oxytocin/Sodium Chloride (Oxytocin 30 Unit/500 Ml-Ns) 30 unit in 500 mls @ 999 mls/hr IV TITRATE [facility] Last Admin: 01/30/19 13:24 Dose: 999 mls/hr Lactated Ringer's (Ringers, Lactated) 1,000 mls @ 150 mls/hr IV ASDIRECTED [facility] Last Admin: 01/30/19 11:59 Dose: 150 mls/hr Cefazolin Sodium/Dextrose 1 gm (/ Premix) 50 mls @ 100 mls/hr IV Q8H [facility] Ibuprofen (Motrin) 400 mg PO Q4H PRN PRN Reason: Pain Ibuprofen (Motrin) 800 mg PO Q6H PRN PRN Reason: Pain Last Admin: 01/31/19 05:31 Dose: 800 mg Lidocaine HCl (Xylocaine 1%) 50 ml INJECT ONETIME PRN PRN Reason: Laceration repair Last Admin: 01/30/19 13:57 Dose: 50 ml Methylergonovine Maleate (Methergine) 0.2 mg IM ASDIRECTED PRN PRN Reason: Post Hemorrhage Nalbuphine HCl (Nubain) 10 mg IVPUSH ASDIRECTED PRN PRN Reason: Pain (severe 7-10) Ondansetron HCl (Zofran) 4 mg IV Q4H PRN PRN Reason: Nausea/Vomiting Oxycodone HCl (Oxycodone) 5 mg PO Q2H PRN PRN Reason: Pain Sodium Chloride (Saline Flush) 10 ml FLUSH ASDIRECTED PRN PRN Reason: Keep Vein Open Sodium Chloride (Normal Saline) 10 ml IV ASDIRECTED PRN PRN Reason: IV Use Sodium Chloride (Saline Flush) 10 ml FLUSH ASDIRECTED PRN PRN Reason: Keep Vein Open Sodium Chloride (Saline Flush) 2.5 ml FLUSH ASDIRECTED PRN PRN Reason: Keep Vein Open Sodium Chloride (Normal Saline) 10 ml IV ASDIRECTED PRN PRN Reason: IV Use Sterile Water (Sterile Water For Irrigation) 1,000 ml IRR ASDIRECTED PRN PRN Reason: delivery Last Admin: 01/30/19 14:01 Dose: 1,000 ml Witch Kiera (Tucks) 1 pad TOP ASDIRECTED PRN PRN Reason: comfort care Last Admin: 01/30/19 15:20 Dose: 1 tub Discontinued Medications Bupivacaine HCl (Sensorcaine-Mpf 0.25%) Confirm Administered Dose 10 ml .ROUTE .STK-MED ONE Stop: 01/30/19 07:39 Bupivacaine HCl (Sensorcaine-Mpf 0.25%) Confirm Administered Dose 10 ml .ROUTE .STK-MED ONE Stop: 01/30/19 12:20 Butorphanol Tartrate (Stadol) 1 mg IM ONETIME ONE Stop: 01/30/19 05:08 Last Admin: 01/30/19 05:20 Dose: 1 mg Butorphanol Tartrate (Stadol) Confirm Administered Dose 1 mg .ROUTE .STK-MED ONE Stop: 01/30/19 05:13 Last Admin: 01/30/19 05:25 Dose: Not Given Butorphanol Tartrate (Stadol) 1 mg IVPUSH ASDIRECTED PRN PRN Reason: Pain Cefazolin Sodium (Ancef) 1 gm IM Q8H [facility] Cefazolin Sodium (Ancef) 1 gm IV Q8H [facility] Fentanyl (Sublimaze) Confirm Administered Dose 100 mcg .ROUTE .STK-MED ONE Stop: 01/30/19 07:38 Vancomycin HCl 1 gm/ Sodium (Chloride) 250 mls @ 166 mls/hr IV Q12H [facility] Last Admin: 01/30/19 08:05 Dose: 166 mls/hr Fentanyl/Bupivacaine HCl (Vouqistm-Fjtlq-Rg 2 Mcg/Ml-0.125%) Confirm Administered Dose 100 mls @ as directed .ROUTE .STK-MED ONE Stop: 01/30/19 07:39 Cefazolin Sodium/Dextrose (Ancef) Confirm Administered Dose 50 mls @ as directed .ROUTE .STK-MED ONE Stop: 01/30/19 11:52 Last Admin: 01/30/19 11:58 Dose: 100 mls/hr Fentanyl/Bupivacaine HCl (Osgyniwj-Yokgu-Dl 2 Mcg/Ml-0.125%) Confirm Administered Dose 100 mls @ as directed .ROUTE .STK-MED ONE Stop: 01/30/19 12:33 Lidocaine/Epinephrine (Lidocaine 1.5%-Epi 1:200,000) Confirm Administered Dose 5 ml IJ .STK-MED ONE Stop: 01/30/19 07:39 Misoprostol (Cytotec) 200 mcg PO ONETIME PRN PRN Reason: Post Hemorrhage - Infant Interaction Disposition, : [place] in Room with Family Interaction: Other (see below) (sleeping in [facility]) Infant Feeding: Attempted ; Nursed Fair/Poor Support Person: - Recovery Exam Fundal Tone: Firm Fundal Level: At Umbilicus Fundal Placement: Midline Lochia Amount: Scant Lochia Color: Serosa/Pana Perineum Description: Edematous Episiotomy/Laceration: Approximated Bladder Status: Voiding Urinary Elimination: Voided - Exam General: Alert, Oriented HEENT: Pupils Equal, Pupils Reactive, EOMI, Mucous Membr. Moist/Pana Neck: Supple Lungs: Clear to Auscultation, Normal Respiratory Effort Cardiovascular: Regular Rate, Regular Rhythm GI/Abdominal Exam: Normal Bowel Sounds, Soft, Non-Tender, No Organomegaly, No Distention Extremities: Normal Inspection, Normal Range of Motion, Non-Tender, No Pedal Edema Skin: Warm, Dry, Intact Wound/Incisions: Healing Well Neurological: No New Focal Deficit Psy/Mental Status: Alert, Normal Affect, Normal Mood - Problem List & Annotations (1) Normal vaginal delivery SNOMED Code(s): 69528093 Code(s): O80 - ENCOUNTER FOR FULL-TERM UNCOMPLICATED DELIVERY Status: Acute Priority: Medium Current Visit: Yes Onset Date: 10/06/17 - Problem List Review Problem List Initiated/Reviewed/Updated: Yes - Assessment Assessment:: Shyanne is improving in functional status and is in good condition. Labs and vital signs are reassuring. She will stay for another night because baby has to stay for a total of 48 hours to receive further coverage for GBS prophylaxis. - Plan Plan:: -- continue routine PP cares. Pain-- continue prn pain management disposition-- patient to remain overnight one more night due to baby. <Shira Yoon - Last Filed: 01/31/19 08:01> - Patient Data Vital Signs - Most Recent: Last Vital Signs Temp 36.4 C 01/31/19 04:00 Pulse 80 01/31/19 07:00 Resp 16 01/31/19 07:00 BP 123/78 01/31/19 07:00 Pulse Ox 97 01/31/19 04:00 Lab Results - Last 24 Hours: Laboratory Results - last 24 hr 01/30/19 01/31/19 Range/Units 13:23 04:55 Hgb 10.0 L (12.0-16.0) g/dL Hct 28.6 L (36.0-46.0) % Cord ABG pH 7.210 (7.18-7.38) Cord ABG Base Excess -8 (-10--2) Cord VBG pH 7.333 (7.25-7.45) Cord VBG Base Excess -7 (-10--2) Med Orders - Current: Current Medications Acetaminophen (Tylenol Extra Strength) 500 mg PO Q4H PRN PRN Reason: Pain Acetaminophen (Tylenol Extra Strength) 1,000 mg PO Q4H PRN PRN Reason: Pain Al Hydroxide/Mg Hydroxide (Mag-Al Plus) 30 ml PO Q8H PRN PRN Reason: Heartburn Benzocaine/Menthol (Dermoplast Pain Relief 20%-0.5% Gipsy) 78 gm TOP ASDIRECTED PRN PRN Reason: Perineal Comfort Measure Last Admin: 01/30/19 15:21 Dose: 1 canister Bisacodyl (Dulcolax) 10 mg RECTAL ONETIME PRN PRN Reason: Constipation Carboprost Tromethamine (Hemabate Ds) 250 mcg IM ASDIRECTED PRN PRN Reason: Post Hemorrhage Docusate Sodium (Colace) 100 mg PO BID PRN PRN Reason: Constipation Last Admin: 01/30/19 21:10 Dose: 100 mg Emollient Ointment (Lansinoh Hpa) 0 gm TOP ASDIRECTED PRN PRN Reason: Sore Nipples Tranexamic Acid 1,000 mg/ (Sodium Chloride) 110 mls @ 660 mls/hr IV ONETIME PRN PRN Reason: Bleeding Lactated Ringer's (Ringers, Lactated) 1,000 mls @ 150 mls/hr IV ASDIRECTED [facility] Last Admin: 01/30/19 08:07 Dose: 150 mls/hr Oxytocin/Sodium Chloride (Oxytocin 30 Unit/500 Ml-Ns) 30 unit in 500 mls @ 999 mls/hr IV TITRATE [facility] Last Admin: 01/30/19 13:24 Dose: 999 mls/hr Lactated Ringer's (Ringers, Lactated) 1,000 mls @ 150 mls/hr IV ASDIRECTED [facility] Last Admin: 01/30/19 11:59 Dose: 150 mls/hr Cefazolin Sodium/Dextrose 1 gm (/ Premix) 50 mls @ 100 mls/hr IV Q8H [facility] Ibuprofen (Motrin) 400 mg PO Q4H PRN PRN Reason: Pain Ibuprofen (Motrin) 800 mg PO Q6H PRN PRN Reason: Pain Last Admin: 01/31/19 05:31 Dose: 800 mg Lidocaine HCl (Xylocaine 1%) 50 ml INJECT ONETIME PRN PRN Reason: Laceration repair Last Admin: 01/30/19 13:57 Dose: 50 ml Methylergonovine Maleate (Methergine) 0.2 mg IM ASDIRECTED PRN PRN Reason: Post Hemorrhage Nalbuphine HCl (Nubain) 10 mg IVPUSH ASDIRECTED PRN PRN Reason: Pain (severe 7-10) Ondansetron HCl (Zofran) 4 mg IV Q4H PRN PRN Reason: Nausea/Vomiting Oxycodone HCl (Oxycodone) 5 mg PO Q2H PRN PRN Reason: Pain Sodium Chloride (Saline Flush) 10 ml FLUSH ASDIRECTED PRN PRN Reason: Keep Vein Open Sodium Chloride (Normal Saline) 10 ml IV ASDIRECTED PRN PRN Reason: IV Use Sodium Chloride (Saline Flush) 10 ml FLUSH ASDIRECTED PRN PRN Reason: Keep Vein Open Sodium Chloride (Saline Flush) 2.5 ml FLUSH ASDIRECTED PRN PRN Reason: Keep Vein Open Sodium Chloride (Normal Saline) 10 ml IV ASDIRECTED PRN PRN Reason: IV Use Sterile Water (Sterile Water For Irrigation) 1,000 ml IRR ASDIRECTED PRN PRN Reason: delivery Last Admin: 01/30/19 14:01 Dose: 1,000 ml Witch Kiera (Tucks) 1 pad TOP ASDIRECTED PRN PRN Reason: comfort care Last Admin: 01/30/19 15:20 Dose: 1 tub Discontinued Medications Bupivacaine HCl (Sensorcaine-Mpf 0.25%) Confirm Administered Dose 10 ml .ROUTE .STK-MED ONE Stop: 01/30/19 07:39 Bupivacaine HCl (Sensorcaine-Mpf 0.25%) Confirm Administered Dose 10 ml .ROUTE .STK-MED ONE Stop: 01/30/19 12:20 Butorphanol Tartrate (Stadol) 1 mg IM ONETIME ONE Stop: 01/30/19 05:08 Last Admin: 01/30/19 05:20 Dose: 1 mg Butorphanol Tartrate (Stadol) Confirm Administered Dose 1 mg .ROUTE .STK-MED ONE Stop: 01/30/19 05:13 Last Admin: 01/30/19 05:25 Dose: Not Given Butorphanol Tartrate (Stadol) 1 mg IVPUSH ASDIRECTED PRN PRN Reason: Pain Cefazolin Sodium (Ancef) 1 gm IM Q8H [facility] Cefazolin Sodium (Ancef) 1 gm IV Q8H [facility] Fentanyl (Sublimaze) Confirm Administered Dose 100 mcg .ROUTE .STK-MED ONE Stop: 01/30/19 07:38 Vancomycin HCl 1 gm/ Sodium (Chloride) 250 mls @ 166 mls/hr IV Q12H [facility] Last Admin: 01/30/19 08:05 Dose: 166 mls/hr Fentanyl/Bupivacaine HCl (Bvdsmyje-Gzpwu-Nw 2 Mcg/Ml-0.125%) Confirm Administered Dose 100 mls @ as directed .ROUTE .STK-MED ONE Stop: 01/30/19 07:39 Cefazolin Sodium/Dextrose (Ancef) Confirm Administered Dose 50 mls @ as directed .ROUTE .STK-MED ONE Stop: 01/30/19 11:52 Last Admin: 01/30/19 11:58 Dose: 100 mls/hr Fentanyl/Bupivacaine HCl (Pewaymeu-Tcuku-Us 2 Mcg/Ml-0.125%) Confirm Administered Dose 100 mls @ as directed .ROUTE .STK-MED ONE Stop: 01/30/19 12:33 Lidocaine/Epinephrine (Lidocaine 1.5%-Epi 1:200,000) Confirm Administered Dose 5 ml IJ .STK-MED ONE Stop: 01/30/19 07:39 Misoprostol (Cytotec) 200 mcg PO ONETIME PRN PRN Reason: Post Hemorrhage - My Orders Last 24 Hours: My Active Orders 01/30/19 11:33 Ondansetron [Zofran] 4 mg IV Q4H PRN Sodium Chloride 0.9% [Normal Saline] 10 ml IV ASDIRECTED PRN Sodium Chloride 0.9% [Saline Flush] 10 ml FLUSH ASDIRECTED PRN Sodium Chloride 0.9% [Saline Flush] 2.5 ml FLUSH ASDIRECTED PRN 01/30/19 11:34 Notify Provider [RC] PRN Peripheral IV Insertion Adult [OM.PC] Routine 01/30/19 11:45 Lactated Ringers [Ringers, Lactated] 1,000 ml IV ASDIRECTED 01/30/19 13:52 Patient Status [ADT] Routine May Shower [RC] ASDIRECTED Up ad Michaela [RC] ASDIRECTED Vital Signs [RC] PER UNIT ROUTINE Acetaminophen [Tylenol Extra Strength] 1,000 mg PO Q4H PRN Acetaminophen [Tylenol Extra Strength] 500 mg PO Q4H PRN Alum Hydrox/Mag Hydrox/Simeth [Mag-Al Plus] 30 ml PO Q8H PRN Benzocaine/Menthol [Dermoplast Pain Relief 20%-0.5% Gipsy] 78 gm TOP ASDIRECTED PRN Bisacodyl [Dulcolax] 10 mg RECTAL ONETIME PRN Docusate Sodium [Colace] 100 mg PO BID PRN Ibuprofen [Motrin] 400 mg PO Q4H PRN Ibuprofen [Motrin] 800 mg PO Q6H PRN Lanolin [Lansinoh HPA] See Dose Instructions TOP ASDIRECTED PRN Witch Kiera [Tucks] 1 pad TOP ASDIRECTED PRN oxyCODONE 5 mg PO Q2H PRN Assess Lochia [WOMSER] Per Unit Routine Assess Uterine Involution [WOMSER] Per Unit Routine Ice Therapy [OM.PC] Per Unit Routine Perineal Care [OM.PC] Per Unit Routine Peripheral IV Discontinue [OM.PC] Routine Sitz Bath [OM.PC] Per Unit Routine 01/30/19 20:00 ceFAZolin [Ancef] 1 gm Premix Bag 1 bag IV Q8H 01/30/19 Lunch Regular Diet [DIET] - Plan Plan:: Patient seen and examined, agree with above. Continue PP cares. Monitoring baby 48 hours due to positive GBBS status
[2019-01-31] MEDS: Docusate Sodium 100 MG Cap PO PRN ×2 (12:55→19:50)
[2019-02-01] MEDS: Ibuprofen 800 MG Tab PO PRN ×2 (01:23→08:33)
--- NOTE | 2019-02-01 07:24 | PCM.PNPP ---
<Shira Spears - Last Filed: 02/01/19 07:19> - General Info Date of Service: 02/01/19 Admission Dx/Problem (Free Text): 35.4 wga IUP, PP day s for Subjective Update: Shyanne continues to improve; she denies pain except cramping of uterus when feeding. She is ambulating, eating, urinating without problems. She has not passed gas or had a bowel movement and is taking stool softeners for this. Functional Status: Reports: Pain Controlled, Tolerating Diet, Ambulating, Urinating - Review of Systems General: Reports: No Symptoms Pulmonary: Reports: No Symptoms Cardiovascular: Reports: No Symptoms Gastrointestinal: Reports: No Symptoms Genitourinary: Reports: No Symptoms Musculoskeletal: Reports: No Symptoms Skin: Reports: No Symptoms Neurological: Reports: No Symptoms - General Info Date of Service: 02/01/19 - Patient Data Vital Signs - Most Recent: Last Vital Signs Temp 97.7 F 01/31/19 19:23 Pulse 69 01/31/19 19:23 Resp 18 01/31/19 19:23 BP 121/65 01/31/19 19:23 Pulse Ox 98 01/31/19 19:23 Weight - Most Recent: 98.883 kg Med Orders - Current: Current Medications Acetaminophen (Tylenol Extra Strength) 500 mg PO Q4H PRN PRN Reason: Pain Acetaminophen (Tylenol Extra Strength) 1,000 mg PO Q4H PRN PRN Reason: Pain Al Hydroxide/Mg Hydroxide (Mag-Al Plus) 30 ml PO Q8H PRN PRN Reason: Heartburn Benzocaine/Menthol (Dermoplast Pain Relief 20%-0.5% Philpot) 78 gm TOP ASDIRECTED PRN PRN Reason: Perineal Comfort Measure Last Admin: 01/30/19 15:21 Dose: 1 canister Bisacodyl (Dulcolax) 10 mg RECTAL ONETIME PRN PRN Reason: Constipation Carboprost Tromethamine (Hemabate Ds) 250 mcg IM ASDIRECTED PRN PRN Reason: Post Hemorrhage Docusate Sodium (Colace) 100 mg PO BID PRN PRN Reason: Constipation Last Admin: 01/31/19 19:50 Dose: 100 mg Emollient Ointment (Lansinoh Hpa) 0 gm TOP ASDIRECTED PRN PRN Reason: Sore Nipples Tranexamic Acid 1,000 mg/ (Sodium Chloride) 110 mls @ 660 mls/hr IV ONETIME PRN PRN Reason: Bleeding Lactated Ringer's (Ringers, Lactated) 1,000 mls @ 150 mls/hr IV ASDIRECTED [facility] Last Admin: 01/30/19 08:07 Dose: 150 mls/hr Oxytocin/Sodium Chloride (Oxytocin 30 Unit/500 Ml-Ns) 30 unit in 500 mls @ 999 mls/hr IV TITRATE [facility] Last Admin: 01/30/19 13:24 Dose: 999 mls/hr Lactated Ringer's (Ringers, Lactated) 1,000 mls @ 150 mls/hr IV ASDIRECTED [facility] Last Admin: 01/30/19 11:59 Dose: 150 mls/hr Ibuprofen (Motrin) 400 mg PO Q4H PRN PRN Reason: Pain Ibuprofen (Motrin) 800 mg PO Q6H PRN PRN Reason: Pain Last Admin: 02/01/19 01:23 Dose: 800 mg Lidocaine HCl (Xylocaine 1%) 50 ml INJECT ONETIME PRN PRN Reason: Laceration repair Last Admin: 01/30/19 13:57 Dose: 50 ml Methylergonovine Maleate (Methergine) 0.2 mg IM ASDIRECTED PRN PRN Reason: Post Hemorrhage Nalbuphine HCl (Nubain) 10 mg IVPUSH ASDIRECTED PRN PRN Reason: Pain (severe 7-10) Ondansetron HCl (Zofran) 4 mg IV Q4H PRN PRN Reason: Nausea/Vomiting Oxycodone HCl (Oxycodone) 5 mg PO Q2H PRN PRN Reason: Pain Sodium Chloride (Saline Flush) 10 ml FLUSH ASDIRECTED PRN PRN Reason: Keep Vein Open Sodium Chloride (Normal Saline) 10 ml IV ASDIRECTED PRN PRN Reason: IV Use Sodium Chloride (Saline Flush) 10 ml FLUSH ASDIRECTED PRN PRN Reason: Keep Vein Open Sodium Chloride (Saline Flush) 2.5 ml FLUSH ASDIRECTED PRN PRN Reason: Keep Vein Open Sodium Chloride (Normal Saline) 10 ml IV ASDIRECTED PRN PRN Reason: IV Use Sterile Water (Sterile Water For Irrigation) 1,000 ml IRR ASDIRECTED PRN PRN Reason: delivery Last Admin: 01/30/19 14:01 Dose: 1,000 ml Julio Qureshi (Tucks) 1 pad TOP ASDIRECTED PRN PRN Reason: comfort care Last Admin: 01/30/19 15:20 Dose: 1 tub Discontinued Medications Bupivacaine HCl (Sensorcaine-Mpf 0.25%) Confirm Administered Dose 10 ml .ROUTE .STK-MED ONE Stop: 01/30/19 07:39 Bupivacaine HCl (Sensorcaine-Mpf 0.25%) Confirm Administered Dose 10 ml .ROUTE .STK-MED ONE Stop: 01/30/19 12:20 Butorphanol Tartrate (Stadol) 1 mg IM ONETIME ONE Stop: 01/30/19 05:08 Last Admin: 01/30/19 05:20 Dose: 1 mg Butorphanol Tartrate (Stadol) Confirm Administered Dose 1 mg .ROUTE .STK-MED ONE Stop: 01/30/19 05:13 Last Admin: 01/30/19 05:25 Dose: Not Given Butorphanol Tartrate (Stadol) 1 mg IVPUSH ASDIRECTED PRN PRN Reason: Pain Cefazolin Sodium (Ancef) 1 gm IM Q8H JASMEET Cefazolin Sodium (Ancef) 1 gm IV Q8H JASMEET Fentanyl (Sublimaze) Confirm Administered Dose 100 mcg .ROUTE .STK-MED ONE Stop: 01/30/19 07:38 Vancomycin HCl 1 gm/ Sodium (Chloride) 250 mls @ 166 mls/hr IV Q12H JSAMEET Last Admin: 01/30/19 08:05 Dose: 166 mls/hr Fentanyl/Bupivacaine HCl (Goxcnvzi-Iopwk-Rl 2 Mcg/Ml-0.125%) Confirm Administered Dose 100 mls @ as directed .ROUTE .STK-MED ONE Stop: 01/30/19 07:39 Cefazolin Sodium/Dextrose (Ancef) Confirm Administered Dose 50 mls @ as directed .ROUTE .STK-MED ONE Stop: 01/30/19 11:52 Last Admin: 01/30/19 11:58 Dose: 100 mls/hr Cefazolin Sodium/Dextrose 1 gm (/ Premix) 50 mls @ 100 mls/hr IV Q8H JASMEET Fentanyl/Bupivacaine HCl (Ictequ[place]f-Dd 2 Mcg/Ml-0.125%) Confirm Administered Dose 100 mls @ as directed .ROUTE .STK-MED ONE Stop: 01/30/19 12:33 Lidocaine/Epinephrine (Lidocaine 1.5%-Epi 1:200,000) Confirm Administered Dose 5 ml IJ .STK-MED ONE Stop: 01/30/19 07:39 Misoprostol (Cytotec) 200 mcg PO ONETIME PRN PRN Reason: Post Hemorrhage - Interaction Infant Disposition, : [place] to Nursery Infant Feeding: Breastfed ; Nursed Well Support Person: - Recovery Exam Fundal Tone: Firm Fundal Level: 1 Fingerbreadths Below Umbilicus Fundal Placement: Midline Lochia Amount: Scant Lochia Color: Serosa/Tome Perineum Description: Intact, Minimal Bruising/Swelling Episiotomy/Laceration: Approximated Bladder Status: Voiding Urinary Elimination: Voided - Exam General: Alert, Oriented HEENT: Pupils Equal, Pupils Reactive, EOMI, Mucous Membr. Moist/Tome Neck: Supple Lungs: Clear to Auscultation, Normal Respiratory Effort Cardiovascular: Regular Rate, Regular Rhythm GI/Abdominal Exam: Normal Bowel Sounds, Soft, Non-Tender, No Organomegaly, No Distention Extremities: Normal Inspection, Normal Range of Motion, Non-Tender, No Pedal Edema, Normal Capillary Refill Skin: Warm, Dry, Intact Wound/Incisions: Healing Well Neurological: No New Focal Deficit Psy/Mental Status: Alert, Normal Affect, Normal Mood - Problem List & Annotations (1) Normal vaginal delivery SNOMED Code(s): 20344080 Code(s): O80 - ENCOUNTER FOR FULL-TERM UNCOMPLICATED DELIVERY Status: Acute Priority: Medium Current Visit: Yes Onset Date: 08/13/17 - Problem List Review Problem List Initiated/Reviewed/Updated: Yes - Assessment Assessment:: Shyanne continues to improve and is in good condition for discharge depending on if baby gets discharged to home. She has had no new labs, but her vital signs continue to be good and stable. Continue with stool softeners at home for bowel movement. <Shira Yoon - Last Filed: 02/01/19 08:36> - Patient Data Vital Signs - Most Recent: Last Vital Signs Temp 36.5 C 01/31/19 19:23 Pulse 69 01/31/19 19:23 Resp 18 01/31/19 19:23 BP 121/65 01/31/19 19:23 Pulse Ox 98 01/31/19 19:23 Med Orders - Current: Current Medications Acetaminophen (Tylenol Extra Strength) 500 mg PO Q4H PRN PRN Reason: Pain Acetaminophen (Tylenol Extra Strength) 1,000 mg PO Q4H PRN PRN Reason: Pain Al Hydroxide/Mg Hydroxide (Mag-Al Plus) 30 ml PO Q8H PRN PRN Reason: Heartburn Benzocaine/Menthol (Dermoplast Pain Relief 20%-0.5% Philpot) 78 gm TOP ASDIRECTED PRN PRN Reason: Perineal Comfort Measure Last Admin: 01/30/19 15:21 Dose: 1 canister Bisacodyl (Dulcolax) 10 mg RECTAL ONETIME PRN PRN Reason: Constipation Carboprost Tromethamine (Hemabate Ds) 250 mcg IM ASDIRECTED PRN PRN Reason: Post Hemorrhage Docusate Sodium (Colace) 100 mg PO BID PRN PRN Reason: Constipation Last Admin: 02/01/19 08:33 Dose: 100 mg Emollient Ointment (Lansinoh Hpa) 0 gm TOP ASDIRECTED PRN PRN Reason: Sore Nipples Tranexamic Acid 1,000 mg/ (Sodium Chloride) 110 mls @ 660 mls/hr IV ONETIME PRN PRN Reason: Bleeding Lactated Ringer's (Ringers, Lactated) 1,000 mls @ 150 mls/hr IV ASDIRECTED [facility] Last Admin: 01/30/19 08:07 Dose: 150 mls/hr Oxytocin/Sodium Chloride (Oxytocin 30 Unit/500 Ml-Ns) 30 unit in 500 mls @ 999 mls/hr IV TITRATE [facility] Last Admin: 01/30/19 13:24 Dose: 999 mls/hr Lactated Ringer's (Ringers, Lactated) 1,000 mls @ 150 mls/hr IV ASDIRECTED [facility] Last Admin: 01/30/19 11:59 Dose: 150 mls/hr Ibuprofen (Motrin) 400 mg PO Q4H PRN PRN Reason: Pain Ibuprofen (Motrin) 800 mg PO Q6H PRN PRN Reason: Pain Last Admin: 02/01/19 08:33 Dose: 800 mg Lidocaine HCl (Xylocaine 1%) 50 ml INJECT ONETIME PRN PRN Reason: Laceration repair Last Admin: 01/30/19 13:57 Dose: 50 ml Methylergonovine Maleate (Methergine) 0.2 mg IM ASDIRECTED PRN PRN Reason: Post Hemorrhage Nalbuphine HCl (Nubain) 10 mg IVPUSH ASDIRECTED PRN PRN Reason: Pain (severe 7-10) Ondansetron HCl (Zofran) 4 mg IV Q4H PRN PRN Reason: Nausea/Vomiting Oxycodone HCl (Oxycodone) 5 mg PO Q2H PRN PRN Reason: Pain Sodium Chloride (Saline Flush) 10 ml FLUSH ASDIRECTED PRN PRN Reason: Keep Vein Open Sodium Chloride (Normal Saline) 10 ml IV ASDIRECTED PRN PRN Reason: IV Use Sodium Chloride (Saline Flush) 10 ml FLUSH ASDIRECTED PRN PRN Reason: Keep Vein Open Sodium Chloride (Saline Flush) 2.5 ml FLUSH ASDIRECTED PRN PRN Reason: Keep Vein Open Sodium Chloride (Normal Saline) 10 ml IV ASDIRECTED PRN PRN Reason: IV Use Sterile Water (Sterile Water For Irrigation) 1,000 ml IRR ASDIRECTED PRN PRN Reason: delivery Last Admin: 01/30/19 14:01 Dose: 1,000 ml Witch Kiera (Tucks) 1 pad TOP ASDIRECTED PRN PRN Reason: comfort care Last Admin: 01/30/19 15:20 Dose: 1 tub Discontinued Medications Bupivacaine HCl (Sensorcaine-Mpf 0.25%) Confirm Administered Dose 10 ml .ROUTE .STK-MED ONE Stop: 01/30/19 07:39 Bupivacaine HCl (Sensorcaine-Mpf 0.25%) Confirm Administered Dose 10 ml .ROUTE .STK-MED ONE Stop: 01/30/19 12:20 Butorphanol Tartrate (Stadol) 1 mg IM ONETIME ONE Stop: 01/30/19 05:08 Last Admin: 01/30/19 05:20 Dose: 1 mg Butorphanol Tartrate (Stadol) Confirm Administered Dose 1 mg .ROUTE .STK-MED ONE Stop: 01/30/19 05:13 Last Admin: 01/30/19 05:25 Dose: Not Given Butorphanol Tartrate (Stadol) 1 mg IVPUSH ASDIRECTED PRN PRN Reason: Pain Cefazolin Sodium (Ancef) 1 gm IM Q8H JASMEET Cefazolin Sodium (Ancef) 1 gm IV Q8H JASMEET Fentanyl (Sublimaze) Confirm Administered Dose 100 mcg .ROUTE .STK-MED ONE Stop: 01/30/19 07:38 Vancomycin HCl 1 gm/ Sodium (Chloride) 250 mls @ 166 mls/hr IV Q12H JASMEET Last Admin: 01/30/19 08:05 Dose: 166 mls/hr Fentanyl/Bupivacaine HCl (Dizqqhrn-Frhwi-Jw 2 Mcg/Ml-0.125%) Confirm Administered Dose 100 mls @ as directed .ROUTE .STK-MED ONE Stop: 01/30/19 07:39 Cefazolin Sodium/Dextrose (Ancef) Confirm Administered Dose 50 mls @ as directed .ROUTE .STK-MED ONE Stop: 01/30/19 11:52 Last Admin: 01/30/19 11:58 Dose: 100 mls/hr Cefazolin Sodium/Dextrose 1 gm (/ Premix) 50 mls @ 100 mls/hr IV Q8H JASMEET Fentanyl/Bupivacaine HCl (Oweksqft-Qffuz-Vl 2 Mcg/Ml-0.125%) Confirm Administered Dose 100 mls @ as directed .ROUTE .STK-MED ONE Stop: 01/30/19 12:33 Lidocaine/Epinephrine (Lidocaine 1.5%-Epi 1:200,000) Confirm Administered Dose 5 ml IJ .STK-MED ONE Stop: 01/30/19 07:39 Misoprostol (Cytotec) 200 mcg PO ONETIME PRN PRN Reason: Post Hemorrhage - My Orders Last 24 Hours: My Active Orders 02/01/19 08:21 Ready for Discharge [RC] PER UNIT ROUTINE - Plan Plan:: Patient seen and examined, discharge to home today. Discharge instrctions reviewed. Follow up at [facility] 6 weeks.
[2019-02-01] MEDS: Docusate Sodium 100 MG Cap PO PRN (08:33)
[2019-02-01 10:43] VITALS: BP 119/63
== END 2019-02-01 12:15 | disposition home or self-care (01) | DRG 560 ==
LOC: MW.OBCHECK 03:19 → MW.OB 03:21 → MW.OBCHECK 06:44 → OBSVTOIN 13:52 → MW.OB 18:52
PROVIDERS: ADMIT Obstetrics & Gynecology; ATTEND Obstetrics & Gynecology
PROC: 10E0XZZ Delivery of Products of Conception, External Approach (ICD-10-PCS; principal; 2019-01-30)
PROC: 6A550ZT Pheresis of Cord Blood Stem Cells, Single (ICD-10-PCS; principal; 2019-01-30)
PROC: 0KQM0ZZ Repair Perineum Muscle, Open Approach (ICD-10-PCS; principal; 2019-01-30)
PROC: 3E0R3BZ Introduction of Anesthetic Agent into Spinal Canal, Percutaneous Approach (ICD-10-PCS; 2019-01-30)
PROC: 00HU33Z Insertion of Infusion Device into Spinal Canal, Percutaneous Approach (ICD-10-PCS; 2019-01-30)
DX: O99.824 Streptococcus B carrier state complicating childbirth (principal); Z37.0 Single live birth; O98.32 Other infections with a predominantly sexual mode of transmission complicating childbirth; O70.1 Second degree perineal laceration during delivery; Z3A.37 37 weeks gestation of pregnancy; A60.00 Herpesviral infection of urogenital system, unspecified; Z88.8 Allergy status to other drugs, medicaments and biological substances
CPT/HCPCS: 36415; 51702; 59025; 59409; 82803; 85014; 85018; 85027; 86850; 86900; 86901; A9270-GY; J0595; J0690; J2001; J2590; J3370; J7050; J7120